=== PATIENT | female | born 1940 | race Two or more races ===

== ENCOUNTER 2019-11-11 17:27 | Inpatient (IN) | payer OTHER, SELFPAY ==
[~2019-11-11] VITALS: Ht 157.5 cm; Wt 92.7 kg
[2019-11-11] MEDS ORDERED: MIDAZOLAM DRIP 50 mg/50mL 50 ML IV ONE (17:37)
[2019-11-11] MEDS ORDERED: SUCCINYLCHOLINE CHLORIDE 20 MG/ML 10ML VIAL IV ONE (17:38)
[2019-11-11] MEDS ORDERED: ETOMIDATE (2MG/ML) 20ML VIAL IV ONE (17:38)
[2019-11-11] MEDS ORDERED: PROPOFOL 100 ML IV ONE (17:54)
[2019-11-11] MEDS ORDERED: SODIUM CHLORIDE 0.9% 1,000 ML IV ONE (17:58)
[2019-11-11] MEDS ORDERED: AZITHROMYCIN 500MG/ 250ML 250 ML IV ONE (18:00)
[2019-11-11] MEDS ORDERED: FUROSEMIDE 20 MG/2 ML VIAL IV ONE (18:00)
[2019-11-11] MEDS ORDERED: cefTRIAXone 1GM/50ML D5W 50 ML IV ONE (18:00)
[2019-11-11] MEDS ORDERED: ZINC SULFATE 220mg CAP or TAB PO ONE (18:15)
[2019-11-11] MEDS ORDERED: ASCORBIC ACID 500 MG TAB PO ONE (18:15)
[2019-11-11] MEDS: MIDAZOLAM DRIP 50 mg/50mL 50 ML IV SCH (18:18)
[2019-11-11] MEDS: PROPOFOL 100 ML IV SCH (18:18)
[2019-11-11] MEDS ORDERED: fentaNYL Drip 2500mCg/250mlNS 250 ML IV ONE (18:23)
[2019-11-11 18:30] LABS: Lactic Acid w/Reflex 2.9 mmol/L (0.4-2.0)
[2019-11-11 18:44] LABS: Basophils # (auto) 0.1 10 ^3/uL (0-0.2); Basophils % (auto) 0.8 % (0.0-2.0); Eosinophils # (auto) 0.8 10 ^3/uL (0-0.8); Eosinophils % (auto) 9.3 % (0.0-7.0); Hematocrit 43.8 % (36.0-46.0); Hemoglobin 14.8 g/dL (12.2-16.2); Lymphocytes # (auto) 2.2 10 ^3/uL (0.4-5.4); Lymphocytes % (auto) 25.6 % (10.0-50.0); Mean Corpuscular Hgb Conc. 33.9 g/dL (32.0-36.0); Mean Corpuscular Volume 97.6 fL (80.0-100.0); Monocytes # (auto) 1.2 10 ^3/uL (0-1.3); Monocytes % (auto) 13.9 % (0.0-12.0); Neutrophils # (auto) 4.3 10 ^3/uL (1.6-8.6); Neutrophils % (auto) 50.4 % (37.0-80.0); Nucleated Red Blood Cells % 0.1 %; Platelet Count (auto) 187 10^3/uL (140-450); Red Blood Cells 4.48 10^6/uL (4.0-5.20); Red Cell Distribution Width 13.3 % (11.8-14.3); White Blood Cell 8.5 10^3/uL (4.4-10.8)
[2019-11-11 18:50] LABS: Albumin 3.7 g/dL (3.4-5.0); Calcium 8.4 mg/dL (8.5-10.1); Potassium 4.1 mmol/L (3.5-5.1)
[2019-11-11 18:53] LABS: BUN/Creatinine Ratio 13.7; Bilirubin, Total 0.3 mg/dL (0.2-1.0); Total Protein 7.6 g/dL (6.4-8.2)
[2019-11-11] MEDS: fentaNYL Drip 2500mCg/250mlNS 250 ML IV SCH (18:54)
[2019-11-11 18:55] LABS: Urine WBC None Seen /hpf (0 - 5)
[2019-11-11 18:58] LABS: INR 1.01 (0.9-1.15); Partial Thromboplastin Time 25.4 sec (23.64-32.05)
[2019-11-11 19:16] LABS: Urine Bacteria NONE SEEN /hpf (None Seen); Urine Blood Negative /uL (Negative); Urine Specific Gravity 1.021 (1.001-1.035)
[2019-11-11] MEDS ORDERED: SODIUM CHLORIDE 0.9% 1,000 ML IV SCH (20:35)
[2019-11-11] MEDS ORDERED: ALBUTEROL SULF 2.5 MG/0.5ML(0.5%) NEB SOLN NEB PRN (20:45)
[2019-11-11] MEDS ORDERED: IPRATROPIUM BROM 0.5 MG/2.5ML INH SOL NEB PRN (20:45)
[2019-11-11 21:23] LABS: CRP High Sensitivity 0.48 mg/dL (< 0.3); Magnesium 2.1 mg/dL (1.6-2.6)
[2019-11-11] MEDS ORDERED: ALBUTEROL SULF HFA 90MCG INH 200DOSE IN SCH ×2 (22:00)
[2019-11-11] MEDS: ALBUTEROL SULF 2.5 MG/0.5ML(0.5%) NEB SOLN NEB SCH (22:15)
[2019-11-11] MEDS: IPRATROPIUM BROM 0.5 MG/2.5ML INH SOL NEB SCH (22:15)
[2019-11-12] VITALS (91 sets, daily range): BP systolic 76–124; BP diastolic 36–64
--- NOTE | 2019-11-12 00:18 | NUR ---
Respiratory note: PT TRANSPORTED ON TRANSPORT VENT FROM ER BED 6 TO ICU 105. TRANSPORT WENT WITHOUT COMPLICATION. WILL CONTINUE TO MONITOR.
--- NOTE | 2019-11-12 00:25 | NUR ---
Admit to ICU from ER on vent Received pt on portable mechanical ventilator, hooked up to ICU monitoring and ventilator. Pt sinus michel on bed side monitor. Sedated on propofol at 30mcg and fentanyl. Will titrate sedation accordingly for goal RASS and hemodynamic stability. See IV spreadsheet for details. No response to stimulation. Pupils 2 and brisk. Hypoactive cough/gag. b/l upper lung bases wheezes auscultated during inspiration. Full assessment done see interventions. pt temp at 96.7. Warm blankets applied. Pt on airborne precautions for rule out COVID-19. Bed locked in lowest position. All alarms on and audible. Pt in full view of RN.
--- NOTE | 2019-11-12 01:32 | NUR ---
Family Received phone call from pt's daughter, Xenia, who elaborated that the password is [id number]. She was updated on the POC and pt's current condition. All questions and concerns addressed at this time.
[2019-11-12] MEDS ORDERED: LEV100T PO (02:06)
[2019-11-12] MEDS ORDERED: TRAZ50TA2 PO (02:07)
[2019-11-12] MEDS ORDERED: ALBUAER3 IN (02:10)
[2019-11-12 03:58] LABS: Basophils # (auto) 0.1 10 ^3/uL (0-0.2); Basophils % (auto) 0.8 % (0.0-2.0); Eosinophils # (auto) 0.5 10 ^3/uL (0-0.8); Hematocrit 38.3 % (36.0-46.0); Lymphocytes # (auto) 1.4 10 ^3/uL (0.4-5.4); Lymphocytes % (auto) 20.4 % (10.0-50.0); Mean Corpuscular Hemoglobin 33.1 pg (28.0-32.0); Mean Corpuscular Volume 97.4 fL (80.0-100.0); Monocytes # (auto) 0.7 10 ^3/uL (0-1.3); Monocytes % (auto) 11.3 % (0.0-12.0); Neutrophils % (auto) 60.5 % (37.0-80.0); Nucleated Red Blood Cells % 0.1 %; Platelet Count (auto) 149 10^3/uL (140-450); Red Blood Cells 3.94 10^6/uL (4.0-5.20); Red Cell Distribution Width 13.1 % (11.8-14.3); White Blood Cell 6.6 10^3/uL (4.4-10.8)
[2019-11-12 04:19] LABS: Albumin 2.9 g/dL (3.4-5.0); Calcium 7.9 mg/dL (8.5-10.1); Magnesium 1.9 mg/dL (1.6-2.6); Potassium 3.5 mmol/L (3.5-5.1)
[2019-11-12 04:22] LABS: BUN/Creatinine Ratio 15.2; Bilirubin, Total 0.7 mg/dL (0.2-1.0)
--- NOTE | 2019-11-12 04:23 | NUR ---
Cares Pt cleansed and linen change, ongoing skin assessment; Optifoam placed to sacrum for preventative, otherwise skin intact. Pt tolerated well.
--- NOTE | 2019-11-12 07:34 | NUR ---
End of Shift Note Report given to day shift RN to assume care
--- NOTE | 2019-11-12 08:10 | NUR ---
PATIENTS GRANDDAUGHTER CALLED FOR UPDATE PROVIDED PASSWORD, UPDATED ON STATUS THROUGHOUT THE NIGHT AND PLAN OF CARE.
[2019-11-12] MEDS: PROPOFOL 100 ML IV SCH ×2 (08:30→21:00)
--- NOTE | 2019-11-12 09:30 | NUR ---
SEDATION VACATION HELD NOT APPROPRIATE AT THIS TIME. AWAITING TEST RESULTS Addendum: 11/12/19 at 1214 by Teresa Quiros RN Amended: Links added.
[2019-11-12] MEDS ORDERED: ASCORBIC ACID 500 MG TAB NG SCH (10:00)
[2019-11-12] MEDS ORDERED: methylPREDNISolone SOD SUCC 125 MG/2 ML VL IV SCH (10:00)
[2019-11-12] MEDS ORDERED: AZITHROMYCIN 500MG/D5WorNS 250ml IV SCH (10:00)
[2019-11-12] MEDS ORDERED: CHOLECALCIFEROL (VITD3) 1,000UNIT=25mCg TAB PO SCH (10:00)
[2019-11-12] MEDS ORDERED: LINEZOLID 600MG/300ML 300 ML IV SCH (10:45)
[2019-11-12] MEDS ORDERED: FUROSEMIDE 100 MG/10ML VIAL IV ONE (10:45)
[2019-11-12] MEDS ORDERED: POTASSIUM EFFERVESENT TAB 25 MEQ GT ONE (10:45)
[2019-11-12] MEDS: ENOXAPARIN SOD 40 MG/0.4 ML SYRINGE SC SCH (11:00)
--- NOTE | 2019-11-12 11:23 | NUR ---
WOUND CARE NOTE: Added patient to wound care monitoring list due to low Ignacio score and intubation status putting patient to high risk for skin breakdown. Patient is 78 years old female with admitting diagnosis of Acute Hypoxic Resp Failure. Patient with history of Asthma,COPD,Depression and thyroid disorder. Patient is resting in ICU bed in Rm. 105. Patient is intubated, sedated and mechanically ventilated. Patient is on airborne precautions, R/O CoVid19. Patient's nurse, JACOB Moore at bedside giving patient's care. Bedside nurse reported that patient has no wound, no pressure injury noted. Patient is receiving BID/PRN cleaning and application of Barrier cream to sacral buttocks as preventative. RECOMMENDATION: Nursing to continue with BID/PRN cleaning and application of Barrier cream to sacral buttocks as preventative per MD order, frequent turning and repositioning schedule as condition permits, redistribute pressure points with pillows,elevate heels on pillow, continue monitoring by wound care while patient is mechanically ventilated.
--- NOTE | 2019-11-12 13:00 | NUR ---
INHOUSE COVID 19 TEST NEGATIVE
--- NOTE | 2019-11-12 13:30 | NUR ---
DR NAVARRO AT BEDSIDE DISCUSSED PATIENTS STATUS AND PLAN OF CARE, NEW ORDERS PLACED
[2019-11-12] MEDS: PIPERACILLIN-TAZO 4.5GM 100 ML IV SCH ×2 (14:00→19:48)
[2019-11-12] MEDS: ALBUTEROL SULF 2.5 MG/0.5ML(0.5%) NEB SOLN NEB SCH ×2 (14:28→21:21)
[2019-11-12] MEDS: IPRATROPIUM BROM 0.5 MG/2.5ML INH SOL NEB SCH ×2 (14:28→21:21)
[2019-11-12] MEDS: methylPREDNISolone SOD SUCC 125 MG/2 ML VL IV SCH ×2 (14:45→21:58)
[2019-11-12] MEDS: NOREPINEPHRINE 8 MG/250ML KIT 250 ML IV SCH (14:57)
[2019-11-12] MEDS ORDERED: PANTOPRAZOLE 40 MG/10 ML VIAL INJ IV ONE (15:00)
--- NOTE | 2019-11-12 16:26 | NUR ---
PATIENTS DAUGHTER TRACY CALLED FOR UPDATE PROVIDED PASSWORD. UPDATED ON CURRENT PLAN OF CARE
[2019-11-12] MEDS: LINEZOLID 600MG/300ML 300 ML IV SCH (16:30)
[2019-11-12] MEDS: MIDAZOLAM DRIP 50 mg/50mL 50 ML IV SCH (17:41)
--- NOTE | 2019-11-12 17:52 | NUR ---
DR MELVIN AT BEDSIDE DISCUSSED PATIENTS STATUS AND PLAN OF CARE, NEW ORDERS PLACED
--- NOTE | 2019-11-12 19:00 | NUR ---
Opening notes Assumed care, still on vent, AC mode, clear lung sounds noted, SR - ST 70's to low 100's, on sedation with propofol and fentanyl infusing in the right IJ, mcconnell catheter draining to a clear urine, OGT intact. Bed in lowest position with side rails up, bed alarm on.
[2019-11-12] MEDS: fentaNYL Drip 2500mCg/250mlNS 250 ML IV SCH (19:52)
--- NOTE | 2019-11-12 21:10 | NUR ---
Transferred to room 108, connected to BS monitor and vent. No distress noted.
--- NOTE | 2019-11-12 22:14 | NUR ---
Received a call from Xenia ([email or web address]) updated on pt's status and POC after obtaining a PW, all questions and concerns were addressed, verbalized understanding.
[2019-11-13] VITALS (77 sets, daily range): BP systolic 88–144; BP diastolic 37–87
--- NOTE | 2019-11-13 01:20 | NUR ---
Patient bathe/linen change Patient given complete bath. Skin integrity assessed for any changes. Linens and gown changed. Patient repositioned for comfort.
[2019-11-13] MEDS: LINEZOLID 600MG/300ML 300 ML IV SCH ×2 (03:22→16:02)
[2019-11-13] MEDS: PIPERACILLIN-TAZO 4.5GM 100 ML IV SCH ×3 (06:03→19:54)
[2019-11-13] MEDS: methylPREDNISolone SOD SUCC 125 MG/2 ML VL IV SCH ×3 (06:03→21:37)
[2019-11-13] MEDS: LEVOTHYROXINE SODIUM 100 MCG TAB PO SCH (06:04)
[2019-11-13] MEDS: LEVOTHYROXINE SODIUM 25 MCG TAB PO SCH (06:05)
[2019-11-13] MEDS: IPRATROPIUM BROM 0.5 MG/2.5ML INH SOL NEB SCH ×4 (06:09→22:01)
[2019-11-13] MEDS: ALBUTEROL SULF 2.5 MG/0.5ML(0.5%) NEB SOLN NEB SCH ×4 (06:09→22:01)
--- NOTE | 2019-11-13 08:10 | NUR ---
PATIENTS GRANDDAUGHTER CALLED PROVIDED PASSWORD. UPDATED ON PATIENTS CURRENT STATUS AND PLAN OF CARE. ADDRESSED CONCERNS
--- NOTE | 2019-11-13 08:45 | NUR ---
TURNING HELD FOR CPAP TRIAL PATIENT IN SUPINE, HIGH FOWLERS
[2019-11-13 08:51] LABS: Basophils # (auto) 0 10 ^3/uL (0-0.2); Basophils % (auto) 0.3 % (0.0-2.0); Eosinophils # (auto) 0 10 ^3/uL (0-0.8); Hematocrit 38.8 % (36.0-46.0); Hemoglobin 13.4 g/dL (12.2-16.2); Lymphocytes # (auto) 0.4 10 ^3/uL (0.4-5.4); Lymphocytes % (auto) 3.7 % (10.0-50.0); Mean Corpuscular Hemoglobin 33.4 pg (28.0-32.0); Mean Corpuscular Hgb Conc. 34.6 g/dL (32.0-36.0); Mean Corpuscular Volume 96.3 fL (80.0-100.0); Monocytes # (auto) 0.3 10 ^3/uL (0-1.3); Monocytes % (auto) 3.1 % (0.0-12.0); Neutrophils # (auto) 9.7 10 ^3/uL (1.6-8.6); Neutrophils % (auto) 92.9 % (37.0-80.0); Platelet Count (auto) 152 10^3/uL (140-450); Red Blood Cells 4.03 10^6/uL (4.0-5.20); White Blood Cell 10.5 10^3/uL (4.4-10.8)
[2019-11-13 09:04] LABS: Calcium 8.3 mg/dL (8.5-10.1); Potassium 3.7 mmol/L (3.5-5.1)
[2019-11-13 09:07] LABS: BUN/Creatinine Ratio 18.9
--- NOTE | 2019-11-13 09:17 | NUR ---
Respiratory note: CPAP TRIAL INITIATED. CPAP SETTINGS ARE PRESSURE SUPPORT: 7 AND PEEP +5. PT IS TOLERATING CPAP TRIAL. PT'S EYES ARE OPEN, BUT NOT TRACKING COMMANDS. RN MARTINEZ Payne IS AWARE. PT VITALS ARE STABLE. WILL CONTINUE TO MONITOR PT.
[2019-11-13] MEDS: ENOXAPARIN SOD 40 MG/0.4 ML SYRINGE SC SCH (10:00)
[2019-11-13] MEDS: POTASSIUM EFFERVESENT TAB 25 MEQ GT SCH (10:00)
[2019-11-13] MEDS ORDERED: FUROSEMIDE 100 MG/10ML VIAL IV SCH (10:00)
--- NOTE | 2019-11-13 10:03 | NUR ---
PATIENTS DAUGHTER TRACY CALLED FOR UPDATE PROVIDED PASSWORD, UPDATED ON PLAN OF CARE
--- NOTE | 2019-11-13 10:19 | NUR ---
DR MELVIN AT BEDSIDE ASSESSED PATIENT AND RECEIVED ORDERS TO EXTUBATE
--- NOTE | 2019-11-13 10:29 | NUR ---
Respiratory note: PT EXTUBATED WITHOUT ANY INCIDENT AND PLACED ON A 8 L COOL MIST AEROSOL AT 30%. MD MELVIN AND RN MARTINEZ Payne IS AWARE. WILL CONTINUE TO MONITOR. NO STRIDOR NOTED.
--- NOTE | 2019-11-13 10:29 | NUR ---
PATIENT EXTUBATED ORDERED PLACED ON COOL MIST AEROSOL FACEMASK. VITALS REMAIN STABLE
[2019-11-13] MEDS: PANTOPRAZOLE 40 MG/10 ML VIAL INJ IV SCH (11:24)
[2019-11-13] MEDS ORDERED: IPRATROPIUM BROM 0.5 MG/2.5ML INH SOL NEB PRN (11:27)
[2019-11-13] MEDS ORDERED: ALBUTEROL SULF 2.5 MG/0.5ML(0.5%) NEB SOLN NEB PRN (11:27)
[2019-11-13] MEDS ORDERED: ALBUTEROL SULF 2.5 MG/0.5ML(0.5%) NEB SOLN ONE (11:30)
[2019-11-13] MEDS ORDERED: IPRATROPIUM BROM 0.5 MG/2.5ML INH SOL ONE (11:30)
--- NOTE | 2019-11-13 11:40 | NUR ---
DR NAVARRO AT BEDSIDE DISCUSSED PATIENTS STATUS AND PLAN OF CARE, NEW ORDERS RECEIVED
[2019-11-13] MEDS ORDERED: POTASSIUM CHL 20MEQ/100ML 100 ML IV ONE (11:45)
--- NOTE | 2019-11-13 13:30 | NUR ---
REMOVED FACE MASK AND PLACED 3L NASAL CANNULA. PULSE OX READING 96% WILL CONTINUE TO MONITOR
[2019-11-13] MEDS: NOREPINEPHRINE 8 MG/250ML KIT 250 ML IV SCH (14:57)
[2019-11-13] MEDS: THROAT LOZENGES(CEPASTAT) MT PRN (21:37)
[2019-11-14] VITALS (16 sets, daily range): BP systolic 96–150; BP diastolic 42–83
[2019-11-14] MEDS: IPRATROPIUM BROM 0.5 MG/2.5ML INH SOL NEB SCH ×6 (02:07→22:42)
[2019-11-14] MEDS: ALBUTEROL SULF 2.5 MG/0.5ML(0.5%) NEB SOLN NEB SCH ×6 (02:07→22:42)
[2019-11-14] MEDS: LINEZOLID 600MG/300ML 300 ML IV SCH ×2 (03:49→17:00)
[2019-11-14] MEDS: PIPERACILLIN-TAZO 4.5GM 100 ML IV SCH ×3 (03:49→20:32)
[2019-11-14] MEDS: THROAT LOZENGES(CEPASTAT) MT PRN ×2 (04:13→13:01)
[2019-11-14] MEDS: methylPREDNISolone SOD SUCC 125 MG/2 ML VL IV SCH ×3 (06:36→22:05)
[2019-11-14] MEDS: LEVOTHYROXINE SODIUM 100 MCG TAB PO SCH (06:36)
[2019-11-14] MEDS: LEVOTHYROXINE SODIUM 25 MCG TAB PO SCH (06:36)
--- NOTE | 2019-11-14 08:00 | NUR ---
ASSUMED CARE PATIENT AWAKE, AOX4, ON 3L NASAL CANNULA. NO RESPIRATORY DISTRESS NOTED. CONNECTED TO BEDSIDE EDGE BONDER. MOVES ALL EXTREMITIES. ZAVALA PRESENT AND DRAINING TO GRAVITY. BED IN LOW POSITION, CALL LIGHT WITHIN REACH AND EDUCATED TO CALL IF NEEDED. PATIENT VERBALIZED UNDERSTANDING. WITHIN VIEW OF NURSE STATION. WILL CONTINUE TO MONITOR
--- NOTE | 2019-11-14 09:50 | NUR ---
BM PATIENT PLACED ON BEDPAN, MODERATE SOFT BROWN BOWEL MOVEMENT. PATIENT CLEANED AND REPOSITIONED FOR COMFORT
--- NOTE | 2019-11-14 10:20 | NUR ---
PATIENTS DAUGHTER TRACY CALLED TRANSFERRED TO PORTABLE PHONE AND PATIENT SPOKE WITH DAUGHTER
[2019-11-14 10:30] LABS: BUN/Creatinine Ratio 20.8; Calcium 8.2 mg/dL (8.5-10.1); Potassium 3.8 mmol/L (3.5-5.1)
[2019-11-14] MEDS: PANTOPRAZOLE 40 MG/10 ML VIAL INJ IV SCH (11:11)
[2019-11-14] MEDS: POTASSIUM EFFERVESENT TAB 25 MEQ GT SCH (11:11)
[2019-11-14] MEDS: ENOXAPARIN SOD 40 MG/0.4 ML SYRINGE SC SCH (11:12)
--- NOTE | 2019-11-14 13:54 | NUR ---
Hospitalist at bedside Dr. Flores updated on patients status. New order to downgrade to telemetry.
--- NOTE | 2019-11-14 14:34 | NUR ---
assessment Patient is a 78 year old female who is alert and oriented in ICU. Per patients daughter Xenia patient is here visiting from [place]. Per Xenia patient lives alone in [place] and functions independently. Per Xenia patient has COPD and has home oxygen and a cane. Xenia informed me patient had a bad cough and she took her to ER and patient was admitted to ICU. Patient has tested negative to Covid 19. I informed Xenia patients post discharge needs to be determined closer to discharge. Xenia verbalized understanding. Addendum: 11/14/19 at 1438 by Josie LUNA Amended: Links added.
--- NOTE | 2019-11-14 14:37 | NUR ---
BED ASSIGNMENT GIVEN 209. COVERING RN ROHAN RECEIVED REPORT. AWAITING BED FROM NEW ROOM TO TRANSFER PATIENT
--- NOTE | 2019-11-14 15:28 | NUR ---
ICU patient trans to floor Verbal report received from JACOB Kline, ICU nurse. ZENOBIA MELARA transfered to room 209 via bed on Tele# 34 and portable 02. All patient personal belongings transfered with patient to receiving floor. Patient is awake, alert and oriented X4. No signs or symptoms of distress, shortness of breath or pain. O2 @ 3 LPM via nasal cannula with sats @ 94%. Right triple lumen IJ, all ports patent with positive blood return. Urethral Aceves catheter draining clear, yellow urine to gravity. Plan of care discussed with patient, verbalized understanding. Bed locked, in lowest position, call light within reach, will continue to monitor Q 1 hour and PRN.
--- NOTE | 2019-11-14 15:59 | NUR ---
INFORMED PATIENTS DAUGHTER TRACY OF PATIENT TRANSFERRED TO NEW ROOM
--- NOTE | 2019-11-14 19:16 | NUR ---
Care endorsed to JACOB Garcia, night nurse.
--- NOTE | 2019-11-14 19:20 | NUR ---
Opening Shift Note Received report from Elin JAMES. Assumed care of patient, awake and alert. No S/S of distress/SOB or pain. Instructed on POC and to call for assist PRN. Fall precaution measures in place, will continue to monitor for changes Q1hr and PRN.
[2019-11-14] MEDS ORDERED: SODIUM CHLORIDE 0.9% 1,000 ML IV ONE (21:15)
--- NOTE | 2019-11-14 23:34 | NUR ---
CALLED [facility] FOR A CONSULTATION WITH .
[2019-11-15] MEDS: ALBUTEROL SULF 2.5 MG/0.5ML(0.5%) NEB SOLN NEB SCH ×6 (02:09→22:25)
[2019-11-15] MEDS: IPRATROPIUM BROM 0.5 MG/2.5ML INH SOL NEB SCH ×6 (02:09→22:25)
[2019-11-15 03:10] VITALS: BP 146/73
[2019-11-15] MEDS: PIPERACILLIN-TAZO 4.5GM 100 ML IV SCH (04:05)
[2019-11-15] MEDS: LINEZOLID 600MG/300ML 300 ML IV SCH (04:05)
[2019-11-15 04:33] VITALS: BP 142/78
[2019-11-15] MEDS: methylPREDNISolone SOD SUCC 125 MG/2 ML VL IV SCH ×3 (06:01→21:50)
[2019-11-15] MEDS: LEVOTHYROXINE SODIUM 100 MCG TAB PO SCH (06:42)
[2019-11-15] MEDS: LEVOTHYROXINE SODIUM 25 MCG TAB PO SCH (06:42)
[2019-11-15 07:59] LABS: Basophils # (auto) 0 10 ^3/uL (0-0.2); Basophils % (auto) 0.2 % (0.0-2.0); Eosinophils # (auto) 0 10 ^3/uL (0-0.8); Hematocrit 37.8 % (36.0-46.0); Lymphocytes # (auto) 0.5 10 ^3/uL (0.4-5.4); Lymphocytes % (auto) 4.9 % (10.0-50.0); Mean Corpuscular Hemoglobin 33.5 pg (28.0-32.0); Mean Corpuscular Hgb Conc. 34.5 g/dL (32.0-36.0); Mean Corpuscular Volume 97.2 fL (80.0-100.0); Monocytes # (auto) 0.8 10 ^3/uL (0-1.3); Monocytes % (auto) 7.2 % (0.0-12.0); Neutrophils # (auto) 9.6 10 ^3/uL (1.6-8.6); Neutrophils % (auto) 87.7 % (37.0-80.0); Platelet Count (auto) 146 10^3/uL (140-450); Red Blood Cells 3.88 10^6/uL (4.0-5.20); Red Cell Distribution Width 12.9 % (11.8-14.3)
--- NOTE | 2019-11-15 08:30 | NUR ---
Assumed care of Patient. Patient alert and orientated x4. No SOB or signs of distress noted at this time. POC discussed with patient. No further questions at this time. Bed in lowest position. Side rails up x2. Call light within reach. Will continue to monitor.
[2019-11-15 08:32] LABS: Albumin 3.1 g/dL (3.4-5.0); Calcium 8.2 mg/dL (8.5-10.1)
[2019-11-15 08:35] LABS: Bilirubin, Total 0.5 mg/dL (0.2-1.0); Total Protein 6.6 g/dL (6.4-8.2)
[2019-11-15 09:00] VITALS: BP 165/80
[2019-11-15] MEDS: PANTOPRAZOLE 40 MG/10 ML VIAL INJ IV SCH (09:46)
[2019-11-15] MEDS: ENOXAPARIN SOD 40 MG/0.4 ML SYRINGE SC SCH (09:47)
[2019-11-15] MEDS: hydrALAZINE HCL 20 MG/ML VL IV PRN (09:58)
[2019-11-15] MEDS ORDERED: POTASSIUM EFFERVESENT TAB 25 MEQ PO SCH (10:00)
[2019-11-15] MEDS: ACETAMINOPHEN 500 MG TAB PO PRN (11:19)
--- NOTE | 2019-11-15 11:20 | NUR ---
Central Line Dressing Change Central line dressing change done with sterile technique. Cleansed with ChloraPrep scrub. Bio-patch applied. Occlusive dressing applied. Patient tolerated without difficulty.
--- NOTE | 2019-11-15 11:35 | NUR ---
NEPHROLOGY Dr Veronica at bedside for Nephrology consult, new orders received and followed through. Patient updated on plan of care, verbalized understanding.
--- NOTE | 2019-11-15 11:56 | NUR ---
ROUNDS Dr Flores at bedside for rounds, new orders received and followed through. Patient updated on plan of care, verbalized understanding.
[2019-11-15 13:00] VITALS: BP 144/68
[2019-11-15 17:00] VITALS: BP 142/77
--- NOTE | 2019-11-15 19:04 | NUR ---
Care endorsed to JACOB Garcia, night nurse.
[2019-11-15] MEDS: PANTOPRAZOLE 40 MG TAB PO SCH (21:50)
[2019-11-15 22:00] VITALS: BP 146/70
[2019-11-15] MEDS: TEMAZEPAM 15 MG CAP PO PRN (23:04)
[2019-11-16] VITALS (8 sets, daily range): BP systolic 138–188; BP diastolic 74–99
[2019-11-16] MEDS: ALBUTEROL SULF 2.5 MG/0.5ML(0.5%) NEB SOLN NEB SCH ×6 (02:35→22:22)
[2019-11-16] MEDS: IPRATROPIUM BROM 0.5 MG/2.5ML INH SOL NEB SCH ×6 (02:35→22:22)
[2019-11-16] MEDS: methylPREDNISolone SOD SUCC 125 MG/2 ML VL IV SCH ×2 (06:11→13:27)
[2019-11-16] MEDS: ACETAMINOPHEN 500 MG TAB PO PRN ×2 (06:12→21:19)
--- NOTE | 2019-11-16 06:12 | NUR ---
Patient complains of headache 6/10, Tylenol given per MD order, will reassess after 1 hour.
[2019-11-16] MEDS: LEVOTHYROXINE SODIUM 100 MCG TAB PO SCH (06:38)
[2019-11-16] MEDS: LEVOTHYROXINE SODIUM 25 MCG TAB PO SCH (06:38)
[2019-11-16] MEDS: ENOXAPARIN SOD 40 MG/0.4 ML SYRINGE SC SCH (09:17)
[2019-11-16] MEDS: PANTOPRAZOLE 40 MG TAB PO SCH ×2 (09:17→21:19)
[2019-11-16] MEDS: hydrALAZINE HCL 20 MG/ML VL IV PRN ×2 (09:18→17:33)
--- NOTE | 2019-11-16 10:30 | NUR ---
PT DECLINED P.T. BECAUSE OF NOT FEELING WELL.
--- NOTE | 2019-11-16 13:20 | NUR ---
Dr. Hanson at bedside, received new orders, noted and carried it out.
--- NOTE | 2019-11-16 13:45 | NUR ---
Mcconnell catheter dc'd Order to discontinue mcconnell catheter. Mcconnell dc'd with clean technique following deflation of balloon. Patient tolerated well with no complaints of pain. Continue care.
--- NOTE | 2019-11-16 14:07 | NUR ---
RT IJ removed. Pressure with gauze and secure with tape. No bleeding noted.
--- NOTE | 2019-11-16 14:08 | NUR ---
IV insertion IV access obtained, via clean sterile technique by inserting 22 gauge catheter at after 1 attempt(s). IV secured properly. No trauma to site. Patient tolerated procedure well.
--- NOTE | 2019-11-16 14:20 | NUR ---
Nutrition Assessment Notes Please refer to link for full assessment notes. Est energy needs: 3296-4627 kcals (14-18 kcal/kgBW) Est protein needs: 61-67 gms/day (1.0-1.1 gm/kgBW) d/t pt age Will continue to monitor and reassess prn. Addendum: 11/16/19 at [address] Amended: Links added.
[2019-11-16] MEDS ORDERED: amLODIPine BESYLATE 5 MG TAB PO ONE (16:30)
--- NOTE | 2019-11-16 16:35 | NUR ---
Patient reported she urinated clear yellow urine.
--- NOTE | 2019-11-16 20:34 | NUR ---
Opening Shift Note Assumed care of patient, awake and alert. No S/S of distress/SOB or pain. Instructed on POC and to call for assist PRN, will continue to monitor for changes Q1hr and PRN.
[2019-11-16] MEDS: THROAT LOZENGES(CEPASTAT) MT PRN (21:27)
[2019-11-16] MEDS: TEMAZEPAM 15 MG CAP PO PRN (23:40)
--- NOTE | 2019-11-17 00:16 | NUR ---
Patient seen by with CT head order. Patient taken for CT of the head.
[2019-11-17] MEDS: ALBUTEROL SULF 2.5 MG/0.5ML(0.5%) NEB SOLN NEB SCH ×6 (02:35→22:10)
[2019-11-17] MEDS: IPRATROPIUM BROM 0.5 MG/2.5ML INH SOL NEB SCH ×6 (02:35→22:10)
[2019-11-17 05:00] VITALS: BP 100/64
[2019-11-17 05:22] LABS: BUN/Creatinine Ratio 25.6; Calcium 8.3 mg/dL (8.5-10.1); Potassium 3.8 mmol/L (3.5-5.1)
[2019-11-17] MEDS: LEVOTHYROXINE SODIUM 100 MCG TAB PO SCH (06:37)
[2019-11-17] MEDS: LEVOTHYROXINE SODIUM 25 MCG TAB PO SCH (06:38)
[2019-11-17] MEDS: PANTOPRAZOLE 40 MG TAB PO SCH ×2 (09:12→21:35)
[2019-11-17] MEDS: amLODIPine BESYLATE 5 MG TAB PO SCH (09:13)
[2019-11-17] MEDS: ENOXAPARIN SOD 40 MG/0.4 ML SYRINGE SC SCH (09:13)
[2019-11-17] MEDS: methylPREDNISolone SOD SUCC 40 MG/ML VL IV SCH (09:13)
[2019-11-17 09:14] VITALS: BP 145/61
[2019-11-17 13:00] VITALS: BP 122/69
--- NOTE | 2019-11-17 14:00 | NUR ---
Patient on oxygen 2 L , sat o2 91-94 %. Will continue to monitor.
--- NOTE | 2019-11-17 14:24 | NUR ---
Patient lost some of her belonging while in ICU, spoke to CN (Naseem ) instructed patient to call lost and found on Monday, patient verbalized understanding.
[2019-11-17 17:00] VITALS: BP 146/67
[2019-11-17] MEDS: TEMAZEPAM 15 MG CAP PO PRN (21:35)
[2019-11-17 22:00] VITALS: BP 138/73
[2019-11-18] MEDS: IPRATROPIUM BROM 0.5 MG/2.5ML INH SOL NEB SCH ×5 (02:07→18:33)
[2019-11-18] MEDS: ALBUTEROL SULF 2.5 MG/0.5ML(0.5%) NEB SOLN NEB SCH ×5 (02:07→18:33)
[2019-11-18 02:40] VITALS: BP 138/73
[2019-11-18 05:00] VITALS: BP 130/69
[2019-11-18] MEDS: LEVOTHYROXINE SODIUM 100 MCG TAB PO SCH (06:33)
[2019-11-18] MEDS: LEVOTHYROXINE SODIUM 25 MCG TAB PO SCH (06:35)
--- NOTE | 2019-11-18 07:49 | NUR ---
Opening Note Assumed pt care from NOC RN. Pt is a/ox4 with no s/s of distress or SOB. Pt is currently sitting upright in bed on 3L NC with no complaints at this time. Discussed POC with pt and d/c planning, pt verbalized understanding. Safety measures maintained with call light within reach, bed in lowest position and side rails up. Will continue to monitor.
[2019-11-18 09:00] VITALS: BP 138/90
[2019-11-18] MEDS: methylPREDNISolone SOD SUCC 40 MG/ML VL IV SCH (09:22)
[2019-11-18] MEDS: ENOXAPARIN SOD 40 MG/0.4 ML SYRINGE SC SCH (09:22)
[2019-11-18] MEDS: PANTOPRAZOLE 40 MG TAB PO SCH (09:23)
[2019-11-18] MEDS: amLODIPine BESYLATE 5 MG TAB PO SCH (09:23)
--- NOTE | 2019-11-18 10:35 | NUR ---
WOUND CARE NOTE: Wound care in to see patient for skin integrity monitoring. Patient has been extubated and now in [facility]/Telemetry unit. Patient is resting in bed in Rm. 209. Patient is awake, alert and oriented. She's in no stated pain at this time. She's self turning and repositioning and her Ignacio score is 22. No wound/ pressure injury noted. Patient tolerated well, reposition for comfort facing her Rt. side, redistributed pressure points with pillows. No further wound care monitoring needed at this time. RECOMMENDATION: Continuation of all wound care orders prescribed by MD, continue with skin/wound plan of care, reconsult for active wound, pressure injury, low Ignacio score of 12 and below.
[2019-11-18 13:00] VITALS: BP 114/59
--- NOTE | 2019-11-18 13:57 | NUR ---
Dr Flores at Bedside MD to see pt. Plans to d/c pt home today once home O2 has been arranged. Will implement and continue to monitor. special services supervisor has been consulted and working on arranging oxygen.
--- NOTE | 2019-11-18 14:07 | NUR ---
Pt refused to get out of bed with PT, RN was notified Addendum: 11/18/19 at 1408 by Yulissa Shaffer PT Amended: Links added.
--- NOTE | 2019-11-18 14:22 | NUR ---
D/C Planning Per SS consult for home oxygen at 3 l/min, walker and walker with seat. Faxed clinical information to [employer]. Pope with [employer]:( [phone] ) they will deliver concentrate oxygen, walker and walker with seat to patient daughter Xenia Ph:( [phone]) home Address: [address] [address] and they will deliver portable oxygen to front lobby. Place call to patient daughter Xenia advising her she will need to call [employer] for a time of delivery. Xenia verbalize understanding d/c plan.
[2019-11-18 14:50] VITALS: BP 114/59
--- NOTE | 2019-11-18 14:53 | NUR ---
[facility] NARES SENT TO LAB
--- NOTE | 2019-11-18 16:12 | NUR ---
Home O2 and Walker at Bedside Home O2 and walker delivered to bedside. Will continue with d/c.
--- NOTE | 2019-11-18 16:20 | NUR ---
D/C Planning Notified pt's daughter, Xenia, of pt's d/c. Aware and will black pickler pt later this evening.
--- NOTE | 2019-11-18 16:43 | NUR ---
Iv and Tele Box 34 D/C;ed IV to pt's L FA removed. Catheter was removed fully intact. Site is asymptomatic. Pressure was applied to site for 3 minutes with gauze and then wrapped in coban. Pt instructed to keep dressing on for 30 minutes; pt verbalized understanding. Tele 34 Removed and Sent back to ICU Staff made aware.
--- NOTE | 2019-11-18 16:57 | NUR ---
Lost Belongings Unable to located pt's stated belongings; white and orange sweatshirt, bra, top, as well as "flip-phone" in pt's sweatshirt. Contacted [employer] with housekeeping, he is unable to located it, contacted previous room in ICU staff, unable to locate belongings. Personally checked lost and found on floor as well as called ED for their lost and found. Unable to located belongings after all attempts. Left message with Cinthia Jha in patient advocacy. She stated that she would document missing belongings.
[2019-11-18 17:00] VITALS: BP 122/63
--- NOTE | 2019-11-18 19:50 | NUR ---
PATIENT OFF FLOOR PERSONAL BELONGINGS WITH PATIENT. PATIENT WHEELED OFF TO FLOOR, WENT HOME WITH DAUGHTER TRACY. 3 OXYGEN TANKS, TUBING AND FOLD UP WALKER WITH PATIENT. ALL DISCHARGE PAPERWORK SIGNED WITH DAY SHIFT NURSE. IV'S AND TELE BOX REMOVED BY DAY SHIFT NURSE. ALL DISCHARGE PAPERWORK BELONGING TO PATIENT IS WITH PATIENT. FAMILY INSTRUCTED WITH PATIENT ON FOLLOW UP APPOINTMENT. NO S/SX OF DISTRESS, SOB OR PAIN.
== END 2019-11-18 19:50 | disposition home or self-care (01) | DRG 208 ==
LOC: EDBD 17:27 → ER 17:27 → TELE 17:28 → ICU WEST 23:26 → TELE-CENTR 11-14 15:28
PROVIDERS: ADMIT Hospitalist; ATTEND Internal Medicine Nephrology
PROC: 5A1945Z Respiratory Ventilation, 24-96 Consecutive Hours (ICD-10-PCS; principal; 2019-11-11)
PROC: 0BH17EZ Insertion of Endotracheal Airway into Trachea, Via Natural or Artificial Opening (ICD-10-PCS; 2019-11-11)
DX: J18.9 Pneumonia, unspecified organism (principal); J96.21 Acute and chronic respiratory failure with hypoxia; N17.0 Acute kidney failure with tubular necrosis; J98.11 Atelectasis; J44.1 Chronic obstructive pulmonary disease with (acute) exacerbation; J44.0 Chronic obstructive pulmonary disease with (acute) lower respiratory infection; Z99.11 Dependence on respirator [ventilator] status; E87.4 Mixed disorder of acid-base balance; F32.9 Major depressive disorder, single episode, unspecified; E03.9 Hypothyroidism, unspecified; F17.200 Nicotine dependence, unspecified, uncomplicated; E66.9 Obesity, unspecified; E11.9 Type 2 diabetes mellitus without complications; I10 Essential (primary) hypertension; Z79.899 Other long term (current) drug therapy; Z68.37 Body mass index [BMI] 37.0-37.9, adult; Z90.710 Acquired absence of both cervix and uterus; Z83.3 Family history of diabetes mellitus; Z99.81 Dependence on supplemental oxygen; Z03.818 Encounter for observation for suspected exposure to other biological agents ruled out
CPT/HCPCS: 31500; 36415; 36556; 36600; 51702; 70450; 71045; 80048; 80053; 81001; 82570; 82728; 82805; 82962; 83605; 83615; 83735; 83880; 84156; 84300; 84443; 84484; 85025; 85379; 85610; 85652; 85730; 86141; 87040; 87045; 87070; 87081; 87205; 87427; 87493; 87804; 87880; 93005; 93306; 94002; 94003; 94640; 96365; 96366; 96368; 96375; 97163; 99291; C9113; G0378; J0330; J0696; J2250; J2543; J2704; J3480

== ENCOUNTER → 2019-12-30 | Emergency (ER) | payer OTHER ==
[~2019-12-30] VITALS: Ht 157.5 cm; Wt 90.7 kg
[~2019-12-30] MED LIST: ACETAMINOPHEN 650 mg PER 20 mL UD GT ONE; ALBUAER3 IN; LEV100T PO; TRAZ50TA2 PO
[2019-12-30 23:55] LABS: Basophils # (auto) 0.1 10 ^3/uL (0-0.2); Basophils % (auto) 0.8 % (0.0-2.0); Eosinophils # (auto) 0.2 10 ^3/uL (0-0.8); Eosinophils % (auto) 2.6 % (0.0-7.0); Hematocrit 34.2 % (36.0-46.0); Hemoglobin 11.9 g/dL (12.2-16.2); Lymphocytes # (auto) 0.8 10 ^3/uL (0.4-5.4); Lymphocytes % (auto) 9.8 % (10.0-50.0); Mean Corpuscular Hemoglobin 33.8 pg (28.0-32.0); Mean Corpuscular Hgb Conc. 34.7 g/dL (32.0-36.0); Mean Corpuscular Volume 97.4 fL (80.0-100.0); Monocytes % (auto) 12.1 % (0.0-12.0); Neutrophils # (auto) 6.4 10 ^3/uL (1.6-8.6); Neutrophils % (auto) 74.7 % (37.0-80.0); Platelet Count (auto) 169 10^3/uL (140-450); Red Blood Cells 3.51 10^6/uL (4.0-5.20); Red Cell Distribution Width 12.9 % (11.8-14.3); White Blood Cell 8.6 10^3/uL (4.4-10.8)
[2019-12-31 00:05] LABS: Calcium 8.3 mg/dL (8.5-10.1); Potassium 3.9 mmol/L (3.5-5.1)
[2019-12-31 00:09] LABS: BUN/Creatinine Ratio 10.5; Bilirubin, Total 0.5 mg/dL (0.2-1.0)
[2019-12-31 00:28] LABS: Urine Bacteria FEW /hpf (None Seen); Urine Blood 1+ /uL (Negative); Urine Specific Gravity 1.019 (1.001-1.035); Urine WBC 65 /hpf (0 - 5)
[2019-12-31 00:58] VITALS: BP 114/67
== END | disposition home or self-care (01) ==
LOC: ER 21:12
DX: N39.0 Urinary tract infection, site not specified (principal); J44.9 Chronic obstructive pulmonary disease, unspecified; I10 Essential (primary) hypertension; Z79.899 Other long term (current) drug therapy
CPT/HCPCS: 36415; 80053; 81001; 85025; 87086; 87088; 87186

== ENCOUNTER 2022-12-29 12:50 | Emergency (ER) | payer OTHER ==
[~2022-12-29] VITALS: Ht 160 cm; Wt 94.5 kg
[~2022-12-29 12:50] MED LIST changes: -ACETAMINOPHEN 650 mg PER 20 mL UD GT ONE; +TRAZ-227 PO; -TRAZ50TA2 PO
[2022-12-29 13:27] LABS: Basophils # (auto) 0.1 10 ^3/uL (0-0.2); Basophils % (auto) 1.1 % (0.0-2.0); Eosinophils # (auto) 0.4 10 ^3/uL (0-0.8); Eosinophils % (auto) 3.7 % (0.0-7.0); Hematocrit 37.6 % (36.0-46.0); Hemoglobin 12.8 g/dL (12.2-16.2); Lymphocytes # (auto) 1.1 10 ^3/uL (0.4-5.4); Mean Corpuscular Hemoglobin 32.3 pg (28.0-32.0); Mean Corpuscular Hgb Conc. 33.9 g/dL (32.0-36.0); Mean Corpuscular Volume 95.3 fL (80.0-100.0); Monocytes # (auto) 1.2 10 ^3/uL (0-1.3); Monocytes % (auto) 11.6 % (0.0-12.0); Neutrophils # (auto) 7.8 10 ^3/uL (1.6-8.6); Neutrophils % (auto) 73.6 % (37.0-80.0); Red Blood Cells 3.94 10^6/uL (4.0-5.20); Red Cell Distribution Width 12.5 % (11.8-14.3); White Blood Cell 10.7 10^3/uL (4.4-10.8)
[2022-12-29 13:42] LABS: Calcium 8.8 mg/dL (8.5-10.1); Potassium 4.2 mmol/L (3.5-5.1)
[2022-12-29 13:47] LABS: BUN/Creatinine Ratio 12.5 (10.0-20.0); Bilirubin, Total 0.5 mg/dL (0.2-1.0); Total Protein 7.3 g/dL (6.4-8.2)
[2022-12-29] MEDS ORDERED: AZIT1POW PO (16:08)
[2022-12-29] MEDS ORDERED: METH4PAK PO (16:08)
[2022-12-29 16:39] VITALS: BP 116/62
== END 2022-12-29 16:42 | disposition home or self-care (01) ==
LOC: ER 12:50
DX: J20.9 Acute bronchitis, unspecified (principal); J44.9 Chronic obstructive pulmonary disease, unspecified; F32.9 Major depressive disorder, single episode, unspecified; I10 Essential (primary) hypertension; E11.9 Type 2 diabetes mellitus without complications; E78.5 Hyperlipidemia, unspecified; Z99.81 Dependence on supplemental oxygen
CPT/HCPCS: 36415; 71045; 80053; 83880; 84484; 85025; 93005